=== PATIENT | female | born 2000 | race Caucasian/White ===

== ENCOUNTER 2024-04-27 11:42 | Outpatient (CLI) | payer SELFPAY ==
[2024-04-27 11:50] VITALS: BP 141/86; PULSE 61
[2024-04-27 11:54] VITALS: BMI 35.2
[2024-04-27 12:06] VITALS: BP 128/83; PULSE 73
== END 2024-04-27 12:17 | disposition home or self-care (01) ==
LOC: OPOB 11:45 → OBGYN 11:46
PROVIDERS: Visit Provider Family Medicine
DX: O16.9 Unspecified maternal hypertension, unspecified trimester (principal); Z3A.00 Weeks of gestation of pregnancy not specified
CPT/HCPCS: 59025

== ENCOUNTER 2024-05-04 12:15 | Outpatient (CLI) | payer SELFPAY ==
[2024-05-04] VITALS (32 sets, daily range): BP systolic 125–156; BP diastolic 77–95; PULSE 58–94; RESP 16; TEMP 36.2; O2SAT 85–99; BMI 34.7
[2024-05-04] MEDS: lactated ringers 1,000 ML 999 ML IV (12:50)
[2024-05-04 13:23] LABS: Basophils % 0.2 %; Eosinophils % 0.3 %; Hematocrit 39.9 % (36-47); Lymphocytes # 1.6 10^3/uL (0.8-4.8); Lymphocytes % 17.3 %; Mean Corpuscular HGB Conc 31.6 g/dL (30-55); Mean Corpuscular Volume 82.3 fl (85-98); Mean Platelet Volume 13.7 fL (7.4-10.4); Monocytes # 0.7 10^3/uL (0.2-0.9); Monocytes % 7.3 %; Neutrophils # 6.83 10^3/uL (1.8-7.7); Neutrophils % 74.5 %; Nucleated Red Blood Cells % 0 %; Platelet Count 199 10^3/cmm (157-399); Red Blood Count 4.85 10^6/uL (3.85-5.65); Red Cell Distribution Width 14.5 % (12.1-15.1); White Blood Count 9.18 10^3/uL (3.29-11.43)
[2024-05-04 13:27] LABS: Slide Review Slide Review Perform
[2024-05-04 13:31] LABS: Bilirubin Urine Negative (Negative); Blood Urine Negative (Negative); Glucose Urine UA Negative (Normal); Ketones Urine Negative (Negative); Leukocyte Esterase Urine 2+ (Negative); Nitrate Urine Negative (Negative); Protein Urine Trace (Negative); Specific Gravity, Urine 1.007 (1.005-1.030); Urine Appearance Clear (CLEAR); Urine Color Yellow (Yellow); Urobilinogen Urine 0.2 mg/dL (Negative)
[2024-05-04 13:36] LABS: Add Urine Microscopic? YES; Bacteria Urine None Seen /hpf; RBC Urine 0-2 /hpf (0-2)
[2024-05-04 13:42] LABS: Alanine Aminotransferase < 5 U/L (0-33); Albumin Level 3.6 g/dL (3.5-5.2); Alkaline Phosphatase 225 U/L (35-105); Anion Gap 15.2 (5-19); Aspartate Amino Transferase 15 U/L (0-32); Blood Urea Nitrogen 9 mg/dL (6-20); Calcium 8.8 mg/dL (8.5-10.5); Carbon Dioxide 18 mmol/L (22-29); Chloride 104 mmol/L (98-107); Glomerular Filtration Rate 88.1 mL/min (90-130); Glucose 78 mg/dL (65-115); Osmolality Calculated 274 mOsm/kg (285-295); Potassium 4.2 mmol/L (3.5-5.1); Sodium 133 mmol/L (136-145); Total Bilirubin 0.2 mg/dL (0.15-1.2); Total Protein 6.6 g/dL (6.6-8.7); Uric Acid 5.4 mg/dL (2.4-5.7)
[2024-05-04 13:44] LABS: Add Urine Culture? No
[2024-05-04 13:50] LABS: Urine Creatinine 54 mg/dL (28-217); Urine Protein Random 16 mg/dL
== END 2024-05-04 14:40 | disposition home or self-care (01) ==
LOC: OPOB 12:19 → OBGYN 12:20
PROVIDERS: Visit Provider Family Medicine
DX: O16.9 Unspecified maternal hypertension, unspecified trimester (principal); Z3A.00 Weeks of gestation of pregnancy not specified
CPT/HCPCS: 36415; 59025; 80053; 81001; 82570; 84156; 84550; 85025; 99211; J7120

== ENCOUNTER 2024-05-05 15:05 | Outpatient (CLI) | payer SELFPAY ==
[2024-05-05 15:05] VITALS: BMI 34.7
[2024-05-05 15:18] VITALS: BP 141/86; PULSE 79; TEMP 36.3
[2024-05-05 15:34] VITALS: BP 141/84; PULSE 81
[2024-05-05 15:49] VITALS: BP 137/89; PULSE 69
[2024-05-05 15:49] LABS: Total Volume, Urine 2940 mL
[2024-05-05 16:02] LABS: Urine Total Protein 8.2 mg/dL (0-150)
[2024-05-05 16:03] LABS: Urine Total Protein 24 Hour 241.1 mg/24hr (0-150)
[2024-05-05 16:04] VITALS: BP 141/90; PULSE 73
[2024-05-05 16:19] VITALS: BP 135/90; PULSE 68
[2024-05-05 16:32] VITALS: BP 135/90; PULSE 68; RESP 16; TEMP 36.3; O2SAT 97
== END 2024-05-05 16:32 | disposition home or self-care (01) ==
LOC: OPOB 15:06 → OBGYN 15:07
PROVIDERS: Visit Provider Family Medicine
DX: O16.9 Unspecified maternal hypertension, unspecified trimester (principal); Z3A.00 Weeks of gestation of pregnancy not specified
CPT/HCPCS: 59025; 84156; 99211

== ENCOUNTER 2024-05-11 11:33 | Inpatient (IN) | payer SELFPAY ==
[2024-05-11] VITALS (127 sets, daily range): BP systolic 105–179; BP diastolic 57–118; PULSE 49–122; RESP 16; O2SAT 97–100; BMI 34.7
[2024-05-11 12:34] LABS: Basophils % 0.3 %; Eosinophils % 0.4 %; Hematocrit 41.1 % (36-47); Lymphocytes # 1.6 10^3/uL (0.8-4.8); Lymphocytes % 20.9 %; Mean Corpuscular HGB Conc 32.1 g/dL (30-55); Mean Corpuscular Hemoglobin 26.1 pg (27-33); Mean Corpuscular Volume 81.2 fl (85-98); Monocytes # 0.5 10^3/uL (0.2-0.9); Monocytes % 7.1 %; Neutrophils # 5.43 10^3/uL (1.8-7.7); Neutrophils % 70.9 %; Nucleated Red Blood Cells % 0 %; Platelet Count 143 10^3/cmm (157-399); Red Blood Count 5.06 10^6/uL (3.85-5.65); Red Cell Distribution Width 14.6 % (12.1-15.1); White Blood Count 7.65 10^3/uL (3.29-11.43)
[2024-05-11 12:45] LABS: Alanine Aminotransferase < 5 U/L (0-33); Albumin Level 3.5 g/dL (3.5-5.2); Alkaline Phosphatase 258 U/L (35-105); Anion Gap 16.2 (5-19); Aspartate Amino Transferase 16 U/L (0-32); Blood Urea Nitrogen 11 mg/dL (6-20); Calcium 9.1 mg/dL (8.5-10.5); Carbon Dioxide 18 mmol/L (22-29); Chloride 105 mmol/L (98-107); Creatinine Clr Calc Pharmacy 109.7388; Glomerular Filtration Rate 76.9 mL/min (90-130); Glucose 68 mg/dL (65-115); Osmolality Calculated 278 mOsm/kg (285-295); Potassium 4.2 mmol/L (3.5-5.1); Sodium 135 mmol/L (136-145); Total Bilirubin 0.2 mg/dL (0.15-1.2); Total Protein 6.5 g/dL (6.6-8.7); Uric Acid 7.1 mg/dL (2.4-5.7)
[2024-05-11] MEDS: miSOPROStol 100 mcg tablet 25 MCG VAGINAL ×2 (12:57→17:30)
[2024-05-11 13:02] LABS: Urine Creatinine 33 mg/dL (28-217)
[2024-05-11 13:04] LABS: Urine Protein Random 23 mg/dL
[2024-05-11 13:15] LABS: Add Urine Microscopic? YES; Bilirubin Urine Neg (Negative); Blood Urine Neg (Negative); Glucose Urine UA Norm (Normal); Ketones Urine Negative (Negative); Leukocyte Esterase Urine Negative (Negative); Nitrate Urine Negative (Negative); Protein Urine Trace (Negative); Specific Gravity, Urine 1.005 (1.005-1.030); Squamous Epithelial Cell Urine 0-4 /hpf (0-5); UA Manual Slide Review YES; UA Slide Review UA Slide Review Perf; Urine Appearance Clear (CLEAR); Urine Color Yellow (Yellow); Urobilinogen Urine Norm (Negative); WBC Urine RARE /hpf (0-5); pH Urine 7 (5-7)
[2024-05-11 13:16] LABS: Bacteria Urine TRACE /hpf
[2024-05-11] MEDS: hyDRALAzine 20 mg/mL INJ 1 mL 5 MG IVP (14:13)
[2024-05-11] MEDS: magnesium sulfate premix 4 GM/100 ML PREMIX IV (14:17)
[2024-05-11] MEDS: dextrose 5%-lactated ringers 1,000 ML 75 ML IV ×2 (14:17→19:40)
[2024-05-11] MEDS: magnesium sulfate premix 20 GM/500 ML BAG IV ×2 (14:41→23:40)
[2024-05-11] MEDS: hyDRALAzine 20 mg/mL INJ 1 mL 10 MG IVP ×2 (17:23→23:40)
[2024-05-11] MEDS: hyDRALAzine 20 mg/mL INJ 1 mL IVP (18:23)
[2024-05-11] MEDS: ondansetron 2 mg/ML SDV 2 mL 4 MG IVP (19:34)
[2024-05-11 22:12] LABS: Magnesium Level (OB Only) 6.5 mg/dL (5.0-7.5)
[2024-05-12] VITALS (220 sets, daily range): BP systolic 122–183; BP diastolic 77–124; PULSE 34–112; RESP 14–17; TEMP 36.3–36.8; O2SAT 92–99
[2024-05-12] MEDS: ondansetron 2 mg/ML SDV 2 mL 4 MG IVP ×3 (00:20→18:04)
[2024-05-12] MEDS: labetalol 5 mg/mL SDV 20mL 20 MG IVP ×3 (01:15→10:53)
[2024-05-12 03:36] LABS: Magnesium Level (OB Only) 7.9 mg/dL (5.0-7.5)
--- NOTE | 2024-05-12 08:49 | P.HP_ITS ---
Providers/Chief Complaint 2 Admitting Physician: Christina Seymour MD Chief Complaint: Severe preeclampsia History of Present Illness Ned Pelletier is a 24 year old female G1, P0 at 38 weeks 2 days gestation with DINORA 05/24/24 by 11-week ultrasound who was sent over from clinic for severely elevated blood pressures. She was found to have preeclampsia with severe features and was started on magnesium for seizure prophylaxis. She was started on hypertensive protocol for her blood pressures. Her cervix was not favorable so she was started on Cytotec for induction. The patient's has been complicated by -induced hypertension, not requiring medications, she only had intermittent mildly elevated blood pressures. She was getting twice weekly NSTs and every 4 week growth ultrasounds. She also had IUGR diagnosed last week, found to be symmetrically small for gestational age. Her prior ultrasound estimated weight was at the 17th percentile, last week's ultrasound showed it at the 6th percentile. Umbilical artery Dopplers were within normal limits and biophysical profile was 8 out of 8 1 week ago. Of note: father of the baby is a rather petite male. The patient's past medical history is significant for kidney cancer with removal of the left kidney and chemotherapy. Her chemotherapy ended in January 2023 and the patient has not had any follow-up with oncology since then. The patient and her spouse were counseled at the beginning of the that she needed to be receiving follow-up care for her cancer and they needed to obtain records in order for us to refer them to oncology. Both the patient and her spouse seemed very disinterested, despite my urging, and never pursued follow-up care. Review of Systems 2 Narrative: Good movement, no loss of fluid, no contractions prior to admission, positive edema, no headache, no right upper quadrant pain, no scotomata. Medications/Allergies Home Medications ?Medication ?Instructions ?Recorded ?Confirmed ?Last Taken ?Type 1 cap PO DAILY 04/27/24 04/0 03/0605/08/24 History Allergies Allergy/AdvReac Type Severity Reaction Status Date / Time No Known Allergies Allergy Verified 04/27/24 12:01 PFSH Acute 2 PFSH: Medical History (Updated 05/12/24 @ 09:03 by Christina Seymour MD) History of renal cell carcinoma Surgical History (Updated 05/12/24 @ 08:59 by Christina Seymour MD) History of nephrectomy, left Female Reproductive History: : 1 Para: 0 Other female reproductive history: DINORA four 1425 x 11-week ultrasound Vitals/I&O/Wt Last Vital Signs Pulse 57 L 05/12/24 08:43 Resp 16 05/11/24 12:07 BP 140/97 05/12/24 08:43 Pulse Ox 96 05/12/24 05:35 O2 Del Method Room Air 05/11/24 11:20 05/11/24 05/12/24 05/12/24 22:59 06:59 14:59 Intake Total 1000 / 1100 449.167 / 1549.167 Output Total 3355 / 3355 2995 / 6350 425 / 425 Balance -2355 / -2255 -2545.833 / -4800.833 -425 / -425 Weight last 48 hrs Weight 94.801 kg Physical Exam 2 Narrative: This morning the patient is resting in bed with a wet washcloth on her forehead. Her cheeks are flushed. She is resting but easily arousable. She denies any pain. She is still generally edematous, heart regular rate and rhythm, lungs clear to auscultation bilaterally, abdomen is soft and nontender, SVE 1-2, thick, -3, AROM performed with blood-tinged fluid. heart tones have been reassuring baseline at 120 moderate variability she does have periods of accelerations, no decelerations Urinary Catheter Management: Galeas Latex Free: Cath Placed During This Visit: yes Reason for Continuing Indwelling Catheter: Accurate Measurement of Urinary Output in Critically Ill Patients Urinary Catheter Date of Insertion: 05/11/24 Urinary Catheter Time of Insertion: 14:25 Data 05/11/24 11:50 05/11/24 11:50 A&P Assessment and plan (1) Severe pre-eclampsia affecting first : The patient is on magnesium and her induction is underway. She has required multiple doses of antihypertensives. It seems that her blood pressures did not respond well to the hydralazine and have responded better to labetalol so I have switched over to the labetalol protocol. She just had artificial rupture of membranes with clear fluid and will be started on high-dose Pitocin. I discussed with the patient that unfortunately since this is her first baby and her body was not ready to be in labor this will be a drawnout process. She had no questions or concerns for me. (2) with 38 completed weeks gestation: (3) Intrauterine growth restriction (IUGR) affecting care of mother, third trimester, single gestation: PDMP PDMP Reviewed: Not Reviewed Attestations 2 Medical Necessity Statement*: Management of severe preeclampsia induction labor and delivery. Coding Level of Care Code Acute Code for Chg Fwd Diagnoses Severe pre-eclampsia affecting first O14.10 with 38 completed weeks gestation Z3A.38 Intrauterine growth restriction (IUGR) affecting care of mother, third trimester, single gestation O36.5930
[2024-05-12] MEDS: dextrose 5%-lactated ringers 1,000 ML 75 ML IV (09:04)
[2024-05-12] MEDS: oxytocin 30 UNIT/500 ML BAG IV (09:05)
[2024-05-12] MEDS: magnesium sulfate premix 20 GM/500 ML BAG IV ×2 (09:05→18:51)
[2024-05-12] MEDS: labetalol 5 mg/mL SDV 20mL 40 MG IVP (12:31)
[2024-05-12] MEDS: sodium chloride 0.9% 1,000 ML 999 ML IV (13:59)
[2024-05-12] MEDS: ROPivacaine syringe 100 MG/50 ML SYRINGE 10 MG EPIDURAL ×2 (15:00→16:53)
--- NOTE | 2024-05-12 15:04 | ANES.PREANE2 ---
Pre-Anesthetic Assessment Height/Weight: Height 1.65 m Weight 94.801 kg Temp Pulse Resp BP Pulse Ox O2 Del Method 97.9 F 74 16 141/91 98 Room Air 05/12/24 12:54 05/12/24 15:02 05/12/24 13:00 05/12/24 15:00 05/12/24 15:02 05/11/24 11:20 Epidural Familial anesthetic complications: None Was Beta Janna taken within 24 hours: N/A Was Clonidine taken within 24 hours: N/A Exam alert, oriented x 3, clear to auscultation bilaterally and regular rate & rhythm Airway Mallampati: Class III Anesthetic Plan ASA status: 3 Anesthesia: Regional (specify below) Risk of > 500 ml blood loss (7ml/kg in children): Yes, adequate IV access and fluids planned Medications/Allergies Home Medications ?Medication ?Instructions ?Recorded ?Confirmed ?Last Taken ?Type 1 cap PO DAILY 04/27/24 05/11/24 05/08/24 History Allergies Allergy/AdvReac Type Severity Reaction Status Date / Time No Known Allergies Allergy Verified 04/27/24 12:01 Current Medications Generic Name Dose Route Start Last Admin Trade Name Freq PRN Reason Stop Dose Admin Hydralazine HCl 5 mg 05/11/24 12:09 05/11/24 14:13 Hydralazine 20 Mg/Ml Inj 1 Ml IVP 5 mg PRN PRN Administration HYPERTENSION Protocol Hydralazine HCl 10 mg 05/11/24 12:09 05/11/24 23:40 Hydralazine 20 Mg/Ml Inj 1 Ml IVP 10 mg PRN PRN Administration HYPERTENSION Protocol Hydralazine HCl 20 mg 05/11/24 12:09 05/11/24 18:23 Hydralazine 20 Mg/Ml Inj 1 Ml IVP 20 mg PRN PRN Administration HYPERTENSION Protocol Sodium Chloride 1,000 mls @ 999 mls/hr 05/11/24 12:06 05/12/24 13:59 Sodium Chloride 0.9% IV 999 mls/hr .Q1H1M PRN Administration Per L&D Rescitation Protocol Dextrose/Lactated Ringer's 1,000 mls @ 125 mls/hr 05/11/24 12:15 05/12/24 14:03 Dextrose 5%-Lactated Ringers IV 0 mls/hr .Q8H ALONZO Infusion Magnesium Sulfate 20 gm in 500 mls @ 50 mls/hr 05/11/24 13:45 05/12/24 09:05 Magnesium Sulfate Premix IV 50 mls/hr .Q10H ALONZO Administration Oxytocin 30 unit in 500 mls @ 1 mls/hr 05/12/24 08:45 05/12/24 11:20 Pitocin IV 20 milliunit/min .Q24H ALONZO 20 mls/hr Titration Protocol 1 MILLIUNIT/MIN Ropivacaine 100 mg in 50 mls @ 10 mls/hr 05/12/24 09:45 05/12/24 15:00 Naropin Syringe EPIDURAL 10 mls/hr .Q5H ALONZO Administration Labetalol HCl 40 mg 05/11/24 12:09 05/12/24 12:31 Labetalol 5 Mg/Ml Sdv 20ml IVP 40 mg PRN PRN Administration HYPERTENSION Protocol Labetalol HCl 20 mg 05/11/24 12:09 05/12/24 10:53 Labetalol 5 Mg/Ml Sdv 20ml IVP 20 mg PRN PRN Administration HYPERTENSION Protocol Ondansetron HCl 4 mg 05/11/24 12:06 05/12/24 14:27 Ondansetron 2 Mg/Ml Sdv 2 Ml IVP 4 mg Q4H PRN Administration NAUSEA AND VOMITING PFSH Anesthesia Medical History (Updated 05/12/24 @ 09:03 by Christina Seymour MD) History of renal cell carcinoma Surgical History (Updated 05/12/24 @ 08:59 by Christina Seymour MD) History of nephrectomy, left Female Reproductive History : 1 Para: 0 Data Anesthesia 05/11/24 11:50 05/11/24 11:50 Short CBC 05/11/24 Range/Units 11:50 WBC 7.65 (3.29-11.43) 10^3/uL Hgb 13.20 (11.27-16.99) g/dL Hct 41.1 (36-47) % MCV 81.2 L (85-98) fl Plt Count 143 L (157-399) 10^3/cmm Neut % (Auto) 70.9 % Neut # (Auto) 5.43 (1.8-7.7) 10^3/uL BMP 05/11/24 11:50 Sodium 135 L Potassium 4.2 Chloride 105 Carbon Dioxide 18 L BUN 11 Creatinine 0.9 Glucose 68 Calcium 9.1 Liver Function 05/11/24 Range/Units 11:50 Total Bilirubin 0.2 (0.15-1.2) mg/dL AST 16 (0-32) U/L ALT < 5 (0-33) U/L Alkaline Phosphatase 258 H (35-105) U/L Albumin 3.5 (3.5-5.2) g/dL Urine 05/11/24 Range/Units 12:18 Urine Color Yellow (Yellow) Urine Appearance Clear (CLEAR) Urine pH 7 (5-7) Ur Specific [place] 1.005 (1.005-1.030) Urine Protein Trace (Negative) Urine Glucose (UA) Norm (Normal) Urine Ketones Negative (Negative) Urine Nitrate Negative (Negative) Urine Bilirubin Neg (Negative) Ur Leukocyte Esterase Negative (Negative) Urine RBC None (0-2) /hpf Urine WBC Rare (0-5) /hpf Blood Bank 05/11/24 11:50 Blood Type O Positive Rho(D) Type Rh positive Antibody Screen Negative Cardiac Studies: No Data to Display
--- NOTE | 2024-05-12 15:05 | ANES.PROC ---
Anesthesia Procedures Procedure/Date: 05/12/24 Epidural: Time Out Performed: Yes Consents Signed: Procedure Consent, NPO Consent and No Consent Needed Consent: requested by attending/covering physician, from patient, from other, risks and benefits reviewed and patient agrees to proceed Lumbar Level: L3-L4 Epidural position: sitting Epidural procedure: sterile prep of area, 1% lidocaine to numb the area, 18 g needle, negative for paresthesia passed, neg for paresthesia, test dose given, 1.5% xylocaine 1:200k epi (5 cc), 0.2% Ropivacaine bolus ml (5), placed PCEA, no systemic response, sterile dressing applied, L.U.D. no apparent complications and 0.2% Ropiavacaine @ mls/hr (10) Additional Comments: STEFAN at 7 cm, threaded to 13 cm
[2024-05-12] MEDS: dextrose 5%-lactated ringers 1,000 ML 65 ML IV (16:54)
--- NOTE | 2024-05-12 19:08 | PM.DELIVERY ---
Delivery Note: Date of delivery: May 12, 2024 Procedure: Normal spontaneous vaginal delivery Delivering Physician: Christina Seymour MD Estimated blood loss (mL): 200 Pre-Delivery Course: The patient had routine care at [facility]. Her was complicated by intermittent mildly elevated blood pressures starting around 28 weeks gestation. She did not require antihypertensives. She received regular growth ultrasounds which detected significant IUGR at 37 weeks gestation. The growth restriction was symmetric. When the patient presented for her 38-week visit her pressures were severely elevated and her urine was positive for significant protein so she was diagnosed with severe preeclampsia. labs: Blood type O+ antibody negative, hepatitis B nonreactive, hepatitis C nonreactive, HIV nonreactive, rubella immune, GC chlamydia negative, RPR nonreactive, UDS negative, Q elliott low risk, she failed her 1 hour but passed her 3-hour glucose tolerance test, she was GBS negative. Delivery: This is a 24-year-old G1, P0 at 38 weeks 2 days gestation who is admitted for induction secondary to severe preeclampsia and IUGR. Mother was started on magnesium. She received 2 doses of Cytotec and was then started on Pitocin. She had artificial rupture of membranes with blood-tinged fluid. She received an epidural for pain management. When she was comfortable with the epidural her labor progressed rather well. She only had to push through about 5 contractions before having a normal spontaneous vaginal delivery of a viable female infant weight 2200 g, 4 pounds 14 ounces, Apgars 7 and 8 over an intact perineum. The 's head and body came shooting out in a single push. The was suctioned at delivery and placed on the mother's chest. The was rather stunned so the cord was clamped and cut and the infant was taken to the warmer for stimulation. Cord blood was obtained. The placenta was delivered grossly intact and normal to inspection. There were a few hemostatic abrasions but no lacerations. Mother and infant were doing well after delivery. A&P Assessment and plan (1) Normal spontaneous vaginal delivery: Routine care (2) Severe pre-eclampsia affecting first : Continue magnesium until diuresing well or for at least 24 hours post . Continue hypertensive protocol. (3) with 38 completed weeks gestation: (4) Intrauterine growth restriction (IUGR) affecting care of mother, third trimester, single gestation: PDMP PDMP Reviewed: Not Reviewed Coding Level of Care Code Acute Code for Chg Fwd Diagnoses Normal spontaneous vaginal delivery O80 Severe pre-eclampsia affecting first O14.10 with 38 completed weeks gestation Z3A.38 Intrauterine growth restriction (IUGR) affecting care of mother, third trimester, single gestation O36.5930
[2024-05-13] VITALS (39 sets, daily range): BP systolic 128–181; BP diastolic 80–109; PULSE 55–100; TEMP 36.7
[2024-05-13] MEDS: magnesium sulfate premix 20 GM/500 ML BAG IV (05:18)
[2024-05-13] MEDS: dextrose 5%-lactated ringers 1,000 ML 125 ML IV (05:18)
[2024-05-13] MEDS: acetaminophen 325 mg Tablet 650 MG PO (11:05)
--- NOTE | 2024-05-13 14:18 | P.PN_ITS ---
Subjective 2 Subjective: day 0-1 Patient has no complaints today. Per nursing she has been rather drowsy today and we turned off the magnesium since her urine output was excellent Vitals/I&O/Wt Last Vital Signs Temp 98.1 F 05/13/24 04:00 Pulse 71 05/13/24 14:13 Resp 17 05/12/24 19:22 BP 163/94 05/13/24 14:13 Pulse Ox 98 05/12/24 19:53 O2 Del Method Room Air 05/11/24 11:20 05/12/24 05/13/24 05/13/24 22:59 06:59 14:59 Intake Total 1466.350 / 3831.083 500 / 4331.083 285 / 285 Output Total 1815 / 3465 2600 / 6065 2075 / 2075 Balance -348.650 / 366.083 -2100 / -1733.917 -1790 / -1790 Physical Exam 2 Narrative: Sitting up in bed resting, awake but drowsy, answers questions with one-word, generalized edema, heart regular rate and rhythm, lungs clear to auscultation bilaterally, abdomen is soft and nontender, fundus is firm, extremities have 2+ edema with SCDs in place Urinary Catheter Management: Galeas Latex Free: Cath Placed During This Visit: yes, but has since been removed by the nurse Reason for Continuing Indwelling Catheter: Accurate Measurement of Urinary Output in Critically Ill Patients Urinary Catheter Date of Insertion: 05/12/24 Urinary Catheter Time of Insertion: 19:00 Date Urinary Catheter Removed: 05/12/24 Time Urinary Catheter Discontinued: 18:20 Data 05/13/24 14:05 05/11/24 11:50 A&P Assessment and plan (1) Severe pre-eclampsia affecting first : We have started off the magnesium due to her excellent urine output. Hopefully she will start to perk up here. She had a couple severe blood pressures and we started her on Procardia XL 30 mg daily. I suspect if this is controlling her blood pressures and her grogginess has worn off then she will be discharged home tomorrow. (2) Normal spontaneous vaginal delivery: Routine care PDMP PDMP Reviewed: Not Reviewed Attestations 2 Medical Necessity Statement*: Routine care Coding Level of Care Code Acute Code for Chg Fwd Diagnoses Severe pre-eclampsia affecting first O14.10 Normal spontaneous vaginal delivery O80
[2024-05-13 14:23] LABS: Hematocrit 38.4 % (36-47); Mean Corpuscular HGB Conc 30.7 g/dL (30-55); Mean Corpuscular Hemoglobin 25.3 pg (27-33); Mean Corpuscular Volume 82.4 fl (85-98); Mean Platelet Volume 13.5 fL (7.4-10.4); Platelet Count 172 10^3/cmm (157-399); Red Blood Count 4.66 10^6/uL (3.85-5.65); Red Cell Distribution Width 14.9 % (12.1-15.1); White Blood Count 12.32 10^3/uL (3.29-11.43)
--- NOTE | 2024-05-13 14:29 | ANE.PACU2 ---
Inpatient post-anesthesia follow up: Airway intact: Yes Vital signs: Temperature 98.1 F Pulse Rate 71 Respiratory Rate 17 Blood Pressure 163/94 Pulse Oximetry 98 Oxygen Delivery Me thod Room Air Oxygen Flow Rate Fraction of Inspir ed Oxygen Hydration adequate: Yes Nausea and vomiting: No Pain level: 1 Mental status: Baseline Epidural Start/End: Epidural Start Date: 05/12/24 Epidural Start Time: 14:42 Epidural End Date: 05/12/24 Epidural End Time: 20:00
[2024-05-13] MEDS: docusate sodium 100 mg Capsule PO (21:52)
[2024-05-13] MEDS: ibuprofen 800 mg tablet PO (21:52)
[2024-05-14 01:51] VITALS: BP 142/82; PULSE 71
[2024-05-14 06:00] VITALS: BP 140/85; PULSE 68
[2024-05-14] MEDS: PRENATAL VIT NO.130/IRON/FOLIC 1 EACH TABLET PO (09:25)
[2024-05-14] MEDS: NIFEdipine ER (24 hr) 30 mg Tablet PO (09:26)
[2024-05-14] MEDS: ibuprofen 800 mg tablet PO (09:26)
[2024-05-14 09:39] VITALS: BP 138/81; PULSE 66; TEMP 36.2
--- NOTE | 2024-05-14 14:00 | PM.DCS ---
Discharge Providers Date of Admission: 05/11/24 11:33 Date of Discharge: May 14, 2024 Attending Provider at Admission: Christina Seymour MD Attending Provider at Discharge: Christina Seymour MD Diagnoses at Discharge Discharge Diagnosis (1) Severe pre-eclampsia affecting first : Status: Acute (2) Normal spontaneous vaginal delivery: Status: Acute Reason for Visit Reason for Visit: Severe preeclampsia Hospital Course Hospital Course This is a 24-year-old G1 now P1 who was admitted for induction secondary to severe preeclampsia and IUGR. She had a normal spontaneous vaginal delivery of a viable female infant at 38 weeks 2 days gestation. weighed 4 pounds, 14 ounces, 2200 g. Mother was kept on magnesium till approximately 20 hours when she was diuresing well. Her magnesium was discontinued and she has been up out of bed, she has showered, she has voided since removing the catheter, her blood pressures have been controlled on Procardia. We will discharge home with close outpatient follow-up Physical Exam Narrative: Alert and oriented, sitting up in bedside chair holding the infant, heart regular rate and rhythm, lungs clear to auscultation bilaterally, abdomen is soft and nontender, fundus is firm, extremities have 2+ edema but no calf tenderness. Urinary Catheter Management: Galeas Latex Free: Cath Placed During This Visit: yes, but has since been removed by the nurse Reason for Continuing Indwelling Catheter: Decision to DC Catheter Urinary Catheter Date of Insertion: 05/12/24 Urinary Catheter Time of Insertion: 19:00 Date Urinary Catheter Removed: 05/14/24 Time Urinary Catheter Discontinued: 11:40 Discharge Data Studies Completed and Pending Laboratory Results WBC 12.32 10^3/uL (3.29-11.43) H 05/13/24 14:05 RBC 4.66 10^6/uL (3.85-5.65) 05/13/24 14:05 Hgb 11.80 g/dL (11.27-16.99) 05/13/24 14:05 Hct 38.4 % (36-47) 05/13/24 14:05 MCV 82.4 fl (85-98) L 05/13/24 14:05 MCH 25.3 pg (27-33) L 05/13/24 14:05 MCHC 30.7 g/dL (30-55) 05/13/24 14:05 RDW 14.9 % (12.1-15.1) 05/13/24 14:05 Plt Count 172 10^3/cmm (157-399) 05/13/24 14:05 MPV 13.5 fL (7.4-10.4) H 05/13/24 14:05 Neut % (Auto) 70.9 % 05/11/24 11:50 Lymph % (Auto) 20.9 % 05/11/24 11:50 [place] % (Auto) 7.1 % 05/11/24 11:50 Eos % (Auto) 0.4 % 05/11/24 11:50 Baso % (Auto) 0.3 % 05/11/24 11:50 Neut # (Auto) 5.43 10^3/uL (1.8-7.7) 05/11/24 11:50 Lymph # (Auto) 1.6 10^3/uL (0.8-4.8) 05/11/24 11:50 [place] # (Auto) 0.5 10^3/uL (0.2-0.9) 05/11/24 11:50 Eos # (Auto) 0.0 10^3/uL (0.0-0.8) 05/11/24 11:50 Baso # (Auto) 0.0 10^3/uL (0.0-0.1) 05/11/24 11:50 Nucleated RBC % (auto) 0 % 05/11/24 11:50 Nucleated RBCs # 0.0 /100WBC 05/11/24 11:50 Sodium 135 mmol/L (136-145) L 05/11/24 11:50 Potassium 4.2 mmol/L (3.5-5.1) 05/11/24 11:50 Chloride 105 mmol/L (98-107) 05/11/24 11:50 Carbon Dioxide 18 mmol/L (22-29) L 05/11/24 11:50 Anion Gap 16.2 (5-19) 05/11/24 11:50 BUN 11 mg/dL (6-20) 05/11/24 11:50 Creatinine 0.9 mg/dL (0.5-0.9) 05/11/24 11:50 GFR Calculation 76.9 mL/min (90-130) L 05/11/24 11:50 Glucose 68 mg/dL (65-115) 05/11/24 11:50 Calculated Osmolality 278 mOsm/kg (285-295) L 05/11/24 11:50 Uric Acid 7.1 mg/dL (2.4-5.7) H 05/11/24 11:50 Calcium 9.1 mg/dL (8.5-10.5) 05/11/24 11:50 Magnesium 7.9 mg/dL (5.0-7.5) H* 05/12/24 02:54 Total Bilirubin 0.2 mg/dL (0.15-1.2) 05/11/24 11:50 AST 16 U/L (0-32) 05/11/24 11:50 ALT < 5 U/L (0-33) 05/11/24 11:50 Alkaline Phosphatase 258 U/L (35-105) H 05/11/24 11:50 Total Protein 6.5 g/dL (6.6-8.7) L 05/11/24 11:50 Albumin 3.5 g/dL (3.5-5.2) 05/11/24 11:50 Globulin 3.0 g/dL (1.3-4.6) 05/11/24 11:50 Urine Color Yellow (Yellow) 05/11/24 12:18 Urine Appearance Clear (CLEAR) 05/11/24 12:18 Urine pH 7 (5-7) 05/11/24 12:18 Ur Specific [place] 1.005 (1.005-1.030) 05/11/24 12:18 Urine Protein Trace (Negative) 05/11/24 12:18 Urine Glucose (UA) Norm (Normal) 05/11/24 12:18 Urine Ketones Negative (Negative) 05/11/24 12:18 Urine Blood Neg (Negative) 05/11/24 12:18 Urine Nitrate Negative (Negative) 05/11/24 12:18 Urine Bilirubin Neg (Negative) 05/11/24 12:18 Urine Urobilinogen Norm mg/dL (Negative) 05/11/24 12:18 Ur Leukocyte Esterase Negative (Negative) 05/11/24 12:18 Urine RBC None /hpf (0-2) 05/11/24 12:18 Urine WBC Rare /hpf (0-5) 05/11/24 12:18 Ur Squamous Epith Cells 0-4 /hpf (0-5) H 05/11/24 12:18 Amorphous Sediment Not Reportable 05/11/24 12:18 Urine Bacteria Trace /hpf (NONE) 05/11/24 12:18 U Random Total Protein 23 mg/dL 05/11/24 12:18 Urine Creatinine 33 mg/dL (28-217) 05/11/24 12:18 Protein/Creatinin Ratio 0.70 mg/mg CR 05/11/24 12:18 Blood Type O Positive 05/11/24 11:50 Rho(D) Type Rh positive 05/11/24 11:50 Antibody Screen Negative 05/11/24 11:50 Vitals Last Vital Signs Temp 97.2 F L 05/14/24 09:39 Pulse 66 05/14/24 09:39 Resp 17 05/12/24 19:22 BP 138/81 05/14/24 09:39 Pulse Ox 98 05/12/24 19:53 O2 Del Method Room Air 05/11/24 11:20 Discharge Plan Discharge Patient Disposition: Home Condition: Stable Prescriptions: New nifedipine 30 mg Tablet Extended Release 24hr 30 mg PO DAILY 30 Days Qty: 30 0RF Continued capsule 1 cap PO DAILY Referrals: Christina Seymour MD [Physician] - 06/17/24 10:30 am (follow-up this Friday with .) Discharge Diet: Usual diet Discharge Activity: Limit activity as instructed Patient Instructions: Depression (DC), Opioid Safety (DC), Preeclampsia and Eclampsia After Delivery (GEN), Hemorrhage (DC), OB Discharge Report, OB Food/Drug Interaction Guide, OB Care at Home, Opioid Safety, OB Vaginal Deliveries, Abnormal Bleeding Activity Restrictions/Additional Instructions: Nothing per vagina for 6 weeks Discharge Attestations Time Spent in Discharge Care*: less than 30 min Quality Metrics Clinical Quality Measures [ No reported AMI, CVA or VTE this stay] Coding Level of Care Code Acute Code for Chg Fwd Diagnoses Severe pre-eclampsia affecting first O14.10 Normal spontaneous vaginal delivery O80
[2024-05-14 16:44] VITALS: BP 139/80; PULSE 83
[2024-05-14 17:47] VITALS: BP 139/80; PULSE 83; RESP 16; TEMP 36.7; O2SAT 99
== END 2024-05-14 17:49 | disposition home or self-care (01) | DRG 807 ==
LOC: OPOB 11:35 → OBGYN 11:35
PROVIDERS: Admitting Provider Family Medicine; Visit Provider Family Medicine
DX: O14.14 Severe pre-eclampsia complicating childbirth (principal); Z37.0 Single live birth; O36.5930 Maternal care for other known or suspected poor fetal growth, third trimester, not applicable or unspecified; Z3A.38 38 weeks gestation of pregnancy; Z85.528 Personal history of other malignant neoplasm of kidney; Z90.5 Acquired absence of kidney; Z92.21 Personal history of antineoplastic chemotherapy
CPT/HCPCS: 36415; 51702; 59025; 59409; 80053; 81001; 82570; 83735; 84156; 84550; 85025; 85027; 86850; 86900; 96374; 96376; 99211; J0360; J2405; J2590; J2795; J3475; J3490; J7030; J7121; J9999